=== PATIENT | female | born 1990 | race Caucasian/White ===

== ENCOUNTER 2017-12-19 09:49 | Inpatient (IN) ==
[~2017-12-19 09:49] MED LIST: LIDOCAINE W/ SODIUM BICARB 0.5 ML SYR ONE; LIDOCAINE W/ SODIUM BICARB 0.5 ML SYR SUBD ONE; Lactated Ringers 1,000 ML PRIMARY IV ONE; Nasal Sanitizer POPSWAB ampule 3 AMP (Nozin) PREOP DOSE ENOS SCH; ceFAZolin Inj 2gm (Premix) 2 GM/50 ML BAG IV ONE
[2017-12-19 10:13] LABS: BILIRUBIN,URINE NEGATIVE (NEG); CLARITY,URINE CLEAR (CLEAR); COLOR,URINE YELLOW (Y); GLUCOSE, URINE (UA) NEGATIVE (NEG); OCCULT BLOOD,URINE MODERATE (NEG); PROTEIN,URINE NEGATIVE (NEG); UROBILINOGEN,URINE 0.2 EU/dL (0.2)
[2017-12-19 10:23] LABS: BACTERIA,URINE FEW; SQUAMOUS EPITHELIAL CELL,UR MODERATE; URINE SAMPLE TYPE CLEAN CATCH URINE; WBC,URINE 0-1
[2017-12-19 10:23] LABS: URINE SPECIFIC GRAVITY - MAN 1.015
[2017-12-19] MEDS ORDERED: MIDAZOLAM 5 MG/1 ML ONE (11:09)
[2017-12-19] MEDS ORDERED: PROPOFOL 10 MG/1 ML (200 MG/20 ML) VIAL IV ONE ×2 (11:09→12:53)
[2017-12-19] MEDS ORDERED: fentaNYL Inj 250 MCG/5 ML VIAL ONE (11:09)
[2017-12-19] MEDS ORDERED: REMIFENTANIL HCL 5 MG VIAL IV ONE (11:09)
[2017-12-19] MEDS ORDERED: LIDOCAINE MPF 2% - 5 ML (20 MG/1 ML) ONE (11:09)
[2017-12-19] MEDS ORDERED: Sodium Chloride 0.9% vial 20 ML ONE (11:23)
[2017-12-19] MEDS ORDERED: BACITRACIN 50,000 UNIT VIAL IRRIG ONE (11:23)
[2017-12-19] MEDS ORDERED: PHENYLEPHRINE 1% 30 ML NASAL DROPS ONE (11:56)
[2017-12-19] MEDS ORDERED: BUPIVACAINE 0.25% W/ EPI - 10 ML VIAL ONE (12:28)
[2017-12-19] MEDS ORDERED: ePHEDrine Inj 50 MG/ML AMP ONE (13:24)
[2017-12-19] MEDS ORDERED: ONDANSETRON 4 MG/2 ML VIAL ONE (14:21)
[2017-12-19] MEDS ORDERED: Propofol 1,000 MG/100 ML VIAL IV ONE (14:39)
[2017-12-19] MEDS ORDERED: Lactated Ringers 1,000 ML PRIMARY IV ONE (14:48)
[2017-12-19] MEDS ORDERED: HYDROmorphone 2 MG/1 ML ONE ×2 (14:49→16:01)
[2017-12-19] MEDS ORDERED: MAGNESIUM 400 MG/5 ML - 30 ML (MILK OF MAGNESIA) PO PRN ×3 (15:22→16:24)
[2017-12-19] MEDS ORDERED: oxyCODONE/APAP 10/325 Tab 1 EACH TAB PO PRN (15:22)
[2017-12-19] MEDS ORDERED: MORPHINE SULFATE 2 MG/1 ML IVP PRN (15:22)
[2017-12-19] MEDS ORDERED: MAGNESIUM CITRATE 296 ML SOLUTION PO PRN ×3 (15:22→16:24)
[2017-12-19] MEDS ORDERED: DOCUSATE 100 MG CAPSULE PO PRN ×3 (15:22→16:24)
[2017-12-19] MEDS ORDERED: Fleet Enema 133ml RECTAL PRN ×3 (15:22→16:24)
[2017-12-19] MEDS ORDERED: BISACODYL 5 MG TABLET PO PRN ×3 (15:22→16:24)
[2017-12-19] MEDS ORDERED: Vancomycin-PHA to Dose IV SCH (15:30)
[2017-12-19] MEDS ORDERED: HYDROmorphone 2 MG/1 ML IVP PRN (15:42)
[2017-12-19] MEDS ORDERED: LIDOCAINE W/ SODIUM BICARB 0.5 ML SYR SUBD PRN (15:42)
[2017-12-19] MEDS ORDERED: KETOROLAC 15 MG/1 ML VIAL IVP PRN (15:42)
[2017-12-19] MEDS ORDERED: ONDANSETRON 4 MG/2 ML VIAL IVP PRN (15:42)
[2017-12-19] MEDS ORDERED: KETOROLAC 30 MG/1 ML VIAL ONE (15:44)
[2017-12-19] MEDS ORDERED: fentaNYL Inj 100 MCG/2 ML VIAL ONE (15:45)
[2017-12-19] MEDS: fentaNYL Inj 100 MCG/2 ML VIAL IVP PRN ×2 (15:45→15:57)
[2017-12-19] MEDS ORDERED: Lactated Ringers 1,000 ML PRIMARY IV SCH (15:45)
--- NOTE | 2017-12-19 15:50 | GEN.OPNOTE ---
Operative Note Surgery Date: 12/19/17 Preoperative Diagnosis: Left L4 radiculopathy/Left L4-5 far lateral disc herniation Postoperative Diagnosis: Same Procedure: Left L4-5 Microlumbar discectomy Surgeon: Sanju Riley MD Anesthesia Provider: Wojciech Youssef CRNA Estimated Blood Loss (mL): 75 Fluids: See anesthesia operative record Pathology: None. Indications: See pre-operative diagnosis Findings: Disrupted nucleus propulsis. Complications: None Operative Summary: Ms. Chapman was met in the preoperative area. Her surgical history and physical was updated. The procedure to be performed was confirmed with Miss Chapman in this match what was written on the patient's consent form. Any questions that Ms. Chapman or her had were answered before she was taken back to the operating room suite. Ms. Chapman was brought back to the operating room suite. She was put under general anesthesia and intubated by the anesthesia staff. She had a Rose catheter placed in her bladder for the procedure. She had pneumatic compression hose placed on her lower legs bilaterally. She was carefully rolled over onto the Evan surgical table with her arms gently positioned upwards with her shoulders abducted less than 90. Her arms were what were well -padded with foam padding on top of the padding of the surgical armboards. The region of her chest and axilla was checked be free with no pressure points over the region of the brachial plexus bilaterally. Her breasts were checked to be below the chest pad of the Evan table with no pressure points over the nipples. Her Rose catheter was checked be free from kinks. Her her pneumatic compression hose was attached to a pneumatic compression device. The C-arm fluoroscopy unit was used to help localize the skin incision for the approach to the intended surgical level. A midline skin incision was marked with a skin marker with a crosshatch based on the localization with the C-arm. Another skin incision was marked vertically approximately 3 inches lateral to the midline incision. A crosshatch was made across this incision with a skin marker. Miss Chapman was prepped and draped in the usual and standard fashion. She was given 2 g of Ancef and 1 g of vancomycin IV for perioperative antibiosis. She was given 10 mg of Decadron IV. A standard surgical timeout was performed identifying the correct patient, the patient's symptoms, the correct procedure, and the correct equipment being available for the procedure. The intended midline skin incision was injected with local anesthetic, quarter percent Marcaine with 1 in 200,000 epinephrine. 7 mL local anesthetic was used. The skin incision was incised with a 10 blade scalpel and all dermal and superficial bleeding points were coagulated with bipolar cautery. Dissection was continued taken down to the lumbar fascia. The lumbar fascia was incised along the border of the spinous processes on the left. Dissection was taken down the spinous process and out over the lamina in a subperiosteal fashion. When the inferior aspect of the lamina became identified a [place] 4 was placed underneath the lamina and lateral fluoroscopy demonstrated the [place] 4 to be underneath the L4 lamina at the intended L4-5 surgical site. Continued dissection was performed until the majority of the L4 lamina on the left very superior aspect of the L5 lamina and the medial aspect of the L4-5 facet joint was exposed. A Wilber retractor was placed for self-retaining retraction. The operating microscope was brought into the surgical field and used for the microsurgical techniques used for the microlumbar discectomy. The high-speed Bilbus Jose A drill with a 3 mm matchstick bur was used to perform a hemilaminotomy and medial facetectomy. An upangled angled curette was used to dissect the insertion of the yellow ligament ligament from underneath the remaining aspect of the L4 lamina. The plane between the yellow ligament and the dermis established and the yellow ligament was completely removed in the hemilaminotomy and medial facetectomy site. This exposed the lateral half of the thecal sac as well as the takeoff of the transversing L5 nerve root. New A [place] 4 instrument was used to carefully dissect the soft tissue adjacent to the takeoffs the L5 nerve root identifying the L4-5 disc space. The thecal sac and the takeoff the L5 nerve root were gently retracted with a Linda'Minerva nerve root retractor and epidural veins over the disc space were coagulated with bipolar cautery turned down to a low setting and cut with microscissors. An annulotomy was performed with a 15 blade scalpel and disc materials were removed with a pituitary rongeur. Additional disc was loosened in the disc space using down-biting medium Mont[place]errat curette with additional disc material being removed with pituitary rongeur. An extensive lateral discectomy was then performed using the down-biting medium [place]at curette to dissect the disc and the cartilaginous endplate from the very left lateral aspect of the disc space. Disc material fragments removed from this region with a pituitary pituitary rongeur. This was performed a number of times to make sure that the disc material and the lateral aspect of the disc space was completely removed. Additional dissection was performed in the left lateral aspect of the disc space using the Bee instrument as well as with a ball-tip instrument. These instruments also palpated the very lateral aspect of the endplate of the L4 vertebral body and very lateral aspect of the endplate of the L5 vertebral body. The disc material mL left far lateral aspect of the L4-5 disc space was completely removed down to near the anterior annulus. Although the disc herniation could not be visualized with this approach it was felt that the far lateral herniated disc was removed. It was therefore decided not to proceed with the lateral approach in addition to the midline approach. The surgical site was copiously irrigated with bacitracin irrigation. The surgical site was inspected for bleeding points none were identified. This FloSeal hemostatic agent was placed over the exposed dural elements. The closure portion of the procedure was begun. The fascia was closed with #1 Vicryl suture in an interrupted fashion. Surgical site was then irrigated again with bacitracin irrigation. The deep subcutaneous tissue and fascia was reapproximated with 2-0 Vicryl suture in an interrupted fashion. This the surgical site was again irrigated with bacitracin irrigation. The dermis and superficial subcutaneous tissue was reapproximated with 3-0 Vicryl suture in an inverted interrupted fashion. The final layer of closure was performed with 4-0 Monocryl in a running subcuticular fashion. The [place] drape was pulled back the skin edges. The skin edges were cleansed with bacitracin soaked sponge and dried with a sterile dry sponge. The incision was dressed with a Mepilex dressing. All surgical drapes removed from Ms. Ralph Was carefully rolled over onto the PACU stretcher. She was awoken and extubated by the anesthesia staff. She was taken to the recovery room in stable condition. All surgical counts reported as correct scub and circulating personnel. End of dictation. The
[2017-12-19] MEDS ORDERED: KETOROLAC 30 MG/1 ML VIAL IVP PRN (16:00)
[2017-12-19] MEDS ORDERED: HYDROcodone-APAP 10 MG-325 MG TABLET PO PRN (16:24)
[2017-12-19] MEDS ORDERED: HYDROcodone-APAP 7.5 MG-325 MG TABLET PO PRN (16:24)
[2017-12-19] MEDS ORDERED: HYDROcodone-APAP 5 MG -325 MG TABLET PO PRN (16:24)
[2017-12-19] MEDS: oxyCODONE/APAP 10/325 Tab 1 EACH TAB PO PRN ×2 (16:54→20:57)
[2017-12-19] MEDS: MORPHINE SULFATE 2 MG/1 ML IVP PRN ×2 (18:18→21:57)
[2017-12-19] MEDS ORDERED: DIAZEPAM 10 MG/2 ML (5 MG/1 ML) CARPUJECT IVP ONE (18:22)
[2017-12-19] MEDS ORDERED: DIAZEPAM 10 MG TABLET PO PRN (18:23)
--- NOTE | 2017-12-19 18:39 | NEURO.PROG ---
Subjective Post Op Day: 0 Pain Management: IV Rose Catheter: No Diet: Regular Ambulating: No Additional Details: Awake, alert. Complaint of post-operative pain, 6/10 despite increasing PO pain meds to Percocet 10/325 (given approximately 90 minutes ago). Left leg pain improved. Moving all extremities well. Weak left dorsiflexion/plantarflexion - 4/5 (same as pre-op). PLAN: 1.) About to receive Morphine 2mg IV for breakthrough pain. 2.) Will order one time dose Valium 5 mg IV. 3.) Valium 5 mg PO Q6H prn. Objective : Data - Vital Signs Vital Signs and I&O: Vital Signs - Last Taken Temperature 98.5 F 12/19/17 18:00 Pulse Rate 100 12/19/17 18:00 Respiratory Rate 16 12/19/17 18:00 Blood Pressure 106/73 12/19/17 18:00 Pulse Ox 97 12/19/17 18:00 Intake and Output (24hr x 4 totals) 12/17/17 12/18/17 12/19/17 12/20/17 05:59 05:59 05:59 05:59 Intake Total 1700 / 1700 Output Total 1750 / 1750 Balance -50 / -50
--- NOTE | 2017-12-19 18:48 | CRNA.PROGR ---
Anesthesia Time - Procedure/Recovery Time Start Date: 12/19/17 End Date: 12/19/17 Anesthesia : Time In: 11:46 Anesthesia : Time Out: 15:27 Anesthesia : Total Time: 221 - Total Anesthesia Time Total Anesthesia Time (minutes): 221 - Other Weight: 89.358 kg Height: 6 ft 1 in Body Mass Index (BMI): 25.9 Anesthesia Type: General Anesthesia : ET
--- NOTE | 2017-12-19 18:49 | CRNA.PROGR ---
Anesthesia Recovery Phase I - Post Anesthesia Evaluation Patient's Condition on Arrival in Phase I: Stable Pain Level: 6
[2017-12-19] MEDS ORDERED: ceFAZolin Inj 1 GM in Sodium Chloride 0.9% 100 ML IV SCH (20:00)
[2017-12-19] MEDS: ceFAZolin Inj 1 GM in Sodium Chloride 0.9% 100 ML IV SCH (20:04)
[2017-12-20] MEDS: oxyCODONE/APAP 10/325 Tab 1 EACH TAB PO PRN ×5 (01:12→23:30)
[2017-12-20] MEDS: MORPHINE SULFATE 2 MG/1 ML IVP PRN ×2 (01:28→05:37)
[2017-12-20] MEDS: ceFAZolin Inj 1 GM in Sodium Chloride 0.9% 100 ML IV SCH (04:50)
[2017-12-20 05:36] LABS: BASOPHILS # (AUTO) 0.01 10*3/UL; BASOPHILS % (AUTO) 0.1 % (0-1); EOSINOPHILS # (AUTO) 0.01 10*3/UL; EOSINOPHILS % (AUTO) 0.1 % (0-8); Hematocrit [HCT] 34.8 % (37.0-47.0); Hemoglobin [HGB] 11.5 g/dL (12.0-16.0); LYMPHOCYTES # (AUTO) 1.28 10*3/uL; MEAN CORPUSCULAR HEMOGLOBIN 27.3 PG (27-31); MEAN CORPUSCULAR VOLUME 82.5 FL (81-99); MEAN PLATELET VOLUME 9.7 FL (7.4-12.2); MONOCYTES # (AUTO) 1.03 10*3/UL (0.3-0.8); MONOCYTES % (AUTO) 6.8 % (5-15); NEUTROPHILS # (AUTO) 12.79 10*3/UL; NEUTROPHILS % (AUTO) 84.3 % (50-80); RED BLOOD COUNT 4.22 10^6/uL (4.20-5.40)
[2017-12-20 05:47] LABS: BLOOD UREA NITROGEN 13 mg/dL (7-22)
[2017-12-20 06:14] LABS: PLATELET MORPHOLOGY COMMENT NORMAL MORPHOLOGY (NORM); RBC MORPHOLOGY COMMENT NORMAL MORPHOLOGY (NORM); WBC MORPHOLOGY COMMENT NORMAL MORPHOLOGY (NORM)
[2017-12-20] MEDS ORDERED: HYDROmorphone Tab 4 MG TAB PO PRN (07:04)
[2017-12-20] MEDS ORDERED: DEXAMETHASONE PF 10 MG/1 ML VIAL IVP ONE (07:07)
[2017-12-20] MEDS ORDERED: Dexamethasone Tab 4 MG TABLET PO SCH (07:15)
--- NOTE | 2017-12-20 07:20 | NEURO.PROG ---
Subjective Post Op Day: 1 Pain Management: IV Rose Catheter: No Diet: Regular Ambulating: Yes Additional Details: Awake and alert. Moving all extremities. Full dorsiflexion/plantarflexion right leg. Weak dorsiflexion/plantarflexion left leg, 4/5 (same as pre-op). Pain still not well controlled; too much pain for discharge. States leg difficult to control; similar but somewhat worse then when disc herniated. PLAN: 1.) Continue post-operative antibiotics. 2.) Dilaudid 4 mg PO Q4H prn - pain. 3.) Increase Percocet to 20 mg Q4H prn, in case Dilaudid not effective. 4.) Toradol 30 mg IV x 1 dose. 5.) Toradol 15 mg PO Q8H. 6.) Increase Valium to 10 mg Q6H. 7.) Continuous pulse ox monitoring. 8.) Mobilize with PT. Objective : Data - Labs CBC and BMP: 12/20/17 05:06 12/20/17 05:06 - Vital Signs Vital Signs and I&O: Vital Signs - Last Taken Temperature 97.3 F 12/20/17 05:00 Pulse Rate 85 12/20/17 07:00 Respiratory Rate 20 12/20/17 07:00 Blood Pressure 98/64 12/20/17 06:06 Pulse Ox 94 12/20/17 05:00 Intake and Output (24hr x 4 totals) 12/18/17 12/19/17 12/20/17 12/21/17 05:59 05:59 05:59 05:59 Intake Total 3302 / 3302 Output Total 2350 / 2350 Balance 952 / 952
[2017-12-20] MEDS ORDERED: KETOROLAC 30 MG/1 ML VIAL IVP ONE (07:21)
[2017-12-20] MEDS: HYDROmorphone Tab 4 MG TAB PO PRN ×4 (07:46→21:02)
--- NOTE | 2017-12-20 09:06 | CRNA.PROGR ---
Anesthesia Note - Progress Notes Anesthesia Progress Note: Sitting up in bed eating breakfast with her spouse. Discussed her anesthetic course and she has no questions regarding her anesthetic. VSS, AAO, still having some pain. No anesthetic complications noted. Laboratory Results 12/19/17 12/19/17 12/20/17 Range/Units 10:00 10:09 05:06 WBC 15.16 H (4.8-10.8) 10^3/uL RBC 4.22 (4.20-5.40) 10^6/uL Hgb 11.5 L (12.0-16.0) g/dL Hct 34.8 L (37.0-47.0) % MCV 82.5 (81-99) FL MCH 27.3 (27-31) PG MCHC 33.0 (33-37) g/dL RDW Std Deviation 45.6 (39-50) fL RDW Coeff of Timothy 15.2 H (11.5-14.5) % Plt Count 288 (140-350) 10*3/uL MPV 9.7 (7.4-12.2) FL Immature Gran % (Auto) 0.3 (0-5) % Neut % (Auto) 84.3 H (50-80) % Lymph % (Auto) 8.4 L (10-50) % [place] % (Auto) 6.8 (5-15) % Eos % (Auto) 0.1 (0-8) % Baso % (Auto) 0.1 (0-1) % Immature Gran # (Auto) 0.04 10*3/UL Neut # (Auto) 12.79 10*3/UL Lymph # (Auto) 1.28 10*3/uL [place] # (Auto) 1.03 H (0.3-0.8) 10*3/UL Eos # (Auto) 0.01 10*3/UL Baso # (Auto) 0.01 10*3/UL WBC Morphology Comment Normal morphology (NORM) Plt Morphology Comment Normal morphology (NORM) RBC Morph Comment Normal morphology (NORM) Sodium (135-145) meq/L Potassium (3.8-5.2) meq/L Chloride (98-112) meq/L Carbon Dioxide (23-33) meq/L Anion Gap (5-20) BUN (7-22) mg/dL Creatinine (0.50-1.20) mg/dL Estimated GFR (>60 ml/min/1.73m(2)) BUN/Creatinine Ratio (6-20) Glucose (78-110) mg/dL Calculated Osmolality (267-292) mOsm/kg Calcium (8.7-10.7) mg/dL Ur Collection Type Clean catch urine Urine Color Yellow (Y) Urine Clarity Clear (CLEAR) Urine pH 7.0 (5.0-8.5) Ur Specific [place] 1.015 (1.005-1.030) U Specif Grav (Refrac) 1.015 Urine Protein Negative (NEG) mg/dl Urine Glucose (UA) Negative (NEG) mg/dL Urine Ketones Negative (NEG) Urine Occult Blood Moderate H (NEG) Urine Nitrate Negative (NEG) Urine Bilirubin Negative (NEG) Urine Urobilinogen 0.2 (0.2) EU/dL Ur Leukocyte Esterase Negative (NEG) Urine RBC 1-3 (NONE) /hpf Urine WBC 0-1 (NONE) Ur Squamous Epith Cells Moderate (NONE) Ur Renal Epithelial Cell None (NONE) Urine Crystals None Urine Bacteria Few (NONE) Urine Casts None (NONE) Urine Mucus Rare (NONE) Urine Trichomonas None (NONE) Urine Yeast None (NONE) Urine HCG, Qual Negative 12/20/17 Range/Units 05:06 WBC (4.8-10.8) 10^3/uL RBC (4.20-5.40) 10^6/uL Hgb (12.0-16.0) g/dL Hct (37.0-47.0) % MCV (81-99) FL MCH (27-31) PG MCHC (33-37) g/dL RDW Std Deviation (39-50) fL RDW Coeff of Timothy (11.5-14.5) % Plt Count (140-350) 10*3/uL MPV (7.4-12.2) FL Immature Gran % (Auto) (0-5) % Neut % (Auto) (50-80) % Lymph % (Auto) (10-50) % [place] % (Auto) (5-15) % Eos % (Auto) (0-8) % Baso % (Auto) (0-1) % Immature Gran # (Auto) 10*3/UL Neut # (Auto) 10*3/UL Lymph # (Auto) 10*3/uL [place] # (Auto) (0.3-0.8) 10*3/UL Eos # (Auto) 10*3/UL Baso # (Auto) 10*3/UL WBC Morphology Comment (NORM) Plt Morphology Comment (NORM) RBC Morph Comment (NORM) Sodium 136 (135-145) meq/L Potassium 4.5 (3.8-5.2) meq/L Chloride 112 (98-112) meq/L Carbon Dioxide 17 L (23-33) meq/L Anion Gap 7 (5-20) BUN 13 (7-22) mg/dL Creatinine 0.5 (0.50-1.20) mg/dL Estimated GFR > 60 (>60 ml/min/1.73m(2)) BUN/Creatinine Ratio 26.00 H (6-20) Glucose 134 H (78-110) mg/dL Calculated Osmolality 283.0 (267-292) mOsm/kg Calcium 8.4 L (8.7-10.7) mg/dL Ur Collection Type Urine Color (Y) Urine Clarity (CLEAR) Urine pH (5.0-8.5) Ur Specific [place] (1.005-1.030) U Specif Grav (Refrac) Urine Protein (NEG) mg/dl Urine Glucose (UA) (NEG) mg/dL Urine Ketones (NEG) Urine Occult Blood (NEG) Urine Nitrate (NEG) Urine Bilirubin (NEG) Urine Urobilinogen (0.2) EU/dL Ur Leukocyte Esterase (NEG) Urine RBC (NONE) /hpf Urine WBC (NONE) Ur Squamous Epith Cells (NONE) Ur Renal Epithelial Cell (NONE) Urine Crystals Urine Bacteria (NONE) Urine Casts (NONE) Urine Mucus (NONE) Urine Trichomonas (NONE) Urine Yeast (NONE) Urine HCG, Qual Vital Signs (24 hrs) Temp Pulse Pulse Resp BP BP Pulse Ox 12/20/17 08:23 97.8 F 73 20 112/65 95 12/20/17 07:00 85 20 12/20/17 06:06 98/64 12/20/17 05:00 97.3 F 85 20 95/43 94 12/20/17 01:00 98.1 F 87 18 102/57 95 12/19/17 21:00 97.1 F 95 18 106/73 96 12/19/17 18:00 98.5 F 100 16 106/73 97 12/19/17 17:00 97.9 F 88 12 105/69 96 12/19/17 16:30 97.4 F 86 12 102/70 94 12/19/17 16:29 97.4 F 86 12 102/70 94 12/19/17 16:15 98.7 F 78 18 103/62 99 12/19/17 16:05 79 18 111/61 99 12/19/17 15:55 76 18 109/59 99 12/19/17 15:45 87 18 112/68 99 12/19/17 15:40 97 18 113/60 99 12/19/17 15:35 97 14 110/67 99 12/19/17 15:30 103 H 14 97/76 99 12/19/17 15:25 97.2 F 85 14 112/63 99 12/19/17 11:11 99.2 F 75 14 104/78 98
[2017-12-20] MEDS: buPROPion XL Tab 150 MG TAB PO SCH (09:34)
[2017-12-20] MEDS: KETOROLAC 10 MG TABLET PO SCH ×2 (13:41→19:16)
[2017-12-21] MEDS: KETOROLAC 10 MG TABLET PO SCH ×2 (01:30→07:14)
[2017-12-21] MEDS: HYDROmorphone Tab 4 MG TAB PO PRN ×3 (01:30→09:19)
[2017-12-21] MEDS: oxyCODONE/APAP 10/325 Tab 1 EACH TAB PO PRN (04:03)
[2017-12-21 04:08] VITALS: RESP 18
--- NOTE | 2017-12-21 07:24 | NEURO.PROG ---
Subjective Post Op Day: 2 Pain Management: PO Rose Catheter: No Flatus: Yes Diet: Regular Ambulating: Yes Additional Details: Awake, alert and up in room with walker. Moving all extremities. Full dorsi/plantar flexion - right. Weak dorsi/plantar flexion - left, with continued decreased control - same as preop. Pain controlled and wanting to go home. She was reminded that she will need to decrease amount of pain med needed to accomplish this. She would like to use Dilaudid at home, which I will write for, in addition to 4 more days of Toradol and resume her pre op Flexeril. Needs bowel movement, which the nurses will help accomplish prior to discharge. Plan: OK for home from neuro standpoint. Ambulate with walker. Limit bending, twisting and lifting with reminder provided with binder. Incision care daily following shower with helene wipes and mepilex x 7 days. No tub baths until after post op appointment. Follow up with Dr. Riley in 2 weeks. Objective : Data - Labs CBC and BMP: 12/20/17 05:06 12/20/17 05:06 - Vital Signs Vital Signs and I&O: Vital Signs - Last Taken Temperature 96.8 F 12/21/17 04:07 Pulse Rate 82 12/21/17 04:07 Respiratory Rate 18 12/21/17 04:07 Blood Pressure 106/58 12/21/17 04:07 Pulse Ox 97 12/21/17 04:07 Intake and Output (24hr x 4 totals) 12/19/17 12/20/17 12/21/17 12/22/17 05:59 05:59 05:59 05:59 Intake Total 3302 / 3302 2360 / 2360 Output Total 2350 / 2350 650 / 650 Balance 952 / 952 1710 / 1710
[2017-12-21 07:42] VITALS: BP 114/81; TEMP 97.3; O2SAT 94
[2017-12-21] MEDS: buPROPion XL Tab 150 MG TAB PO SCH (08:18)
--- NOTE | 2017-12-21 11:48 | PT.PROG ---
Progress Note Progress Note: Attempted to see patient however she was very exhausted and finally sleeping. Will attempt again tomorrow. Anni Armando, STONE SPREADER OPERATOR
--- NOTE | 2017-12-21 11:51 | PT.PROG ---
Progress Note Progress Note: S: Pt. states she is doing well. Ready to go home. Has some concerns of her left leg movements and ability, but encouraged her that this should improve over time. O: Treatment consisted of functional activities: ambulated in the hallway on even surfaces, up and down 4 stairs, and sit to stands x 1. She was given a standard walker and instructed in use. A: Pt. performed all activities very well. she does have rigidity and instability noted in left LE. She was able to use the walker well with no concerns. P: Continue per POC to increase strength and activity tolerance unless otherwise d/c from hospital. Anni Armando, STEAM FITTER
--- NOTE | 2017-12-22 09:52 | PTI REPORT ---
Thank you for the referral of Cheyenne Chapman. She was seen on 12/19/17 for an inpatient evaluation status post lumbar laminectomy. SUBJECTIVE: The patient is a 27-year-old female. The patient reports that she lives at home with her . Her is gone from 11-2 PM everyday. The patient reports that she had a lot of left lower extremity numbness prior to surgery. The patient reports that she has a 6-year-old and a 3-year-old child. The patient was wondering how to get in and out of her vehicle. The patient reports that her pain is a 7/10 on the verbal analog scale (0=no pain, 10=worst pain). The patient has a few stairs to get into her home and stairs throughout the home. PAST MEDICAL HISTORY: Past medical history can be found in the patient's medical record. OBJECTIVE FINDINGS: General observations: The patient was supine in bed with head of bed elevated over 30 degrees with IV in place. Bed mobility: The patient was educated on log rolling and required mod assist x1 for proper technique and max cues for supine to sit and sit to supine. Sensation: The patient does demonstrate decreased sensation in left L4-L5 dermatome. ASSESSMENT: The patient is a 27-year-old female that presents status post lumbar laminectomy. The patient would benefit from skilled therapy in order to improve functional mobility and return to prior level of function. The patient' s prognosis for therapy is good. Problem List: Decreased strength Decreased independence Short-Term Goals: To be met by discharge from inpatient: Patient will be independent with brace donning and doffing. Patient will be independent with log rolling technique. Patient will be able to ambulate 150 feet in order to return home to prior level of function. Patient will be able to ascend and descend 5 stairs in order to return home per prior level of function. Long-Term Goals: To be met following discharge from inpatient: Patient will benefit to be seen by outpatient physical therapy. TREATMENT PLAN: Patient will be seen B.I.D during the week and one time per day over the weekend as an inpatient for therapeutic exercise, functional activity, neuromuscular reeducation, gait training, and modalities as needed. INITIAL TREATMENT: Treatment today consisted of the initial evaluation followed by instruction in log rolling and B/L/Ts. The patient was fit with an abdominal binder and educated on her bending/lifting/twisting restrictions. The patient was left in care of nurse when PT exited. RODDY
--- NOTE | 2017-12-22 10:19 | OTI REPORT ---
Thank you for the referral of Cheyenne Chapman. She was seen on 12/19/17 for an occupational therapy inpatient evaluation status post lumbar laminectomy. SUBJECTIVE: The patient is a 27-year-old female who had numbness in her leg and fell a couple of times before having her back surgery. She reports that her biggest fear is having her kids at home, who are very young, running around her legs. She is not to bend, twist, or lift for the next 6 weeks and is interested in all of the equipment that will help her. PAST MEDICAL HISTORY: Past medical history can be found in the patient's medical record. OBJECTIVE FINDINGS: Activities of daily living: The patient was issued a sock aide, a shoe horn, and a bath sponge to be independent in all of her ADLs and functional activities. Demonstration was given on how to use the machine cementer as well as the sock aide. Her was present during the session today as well. They have a very low toilet and she is very concerned about standing up from that and causing pressure. She was issued a high rise toilet seat with handles. The patient was also issued a shower chair with a back to sit during showers for safety. Demonstration was given on how to get in and out of the shower. She required max assist to perform ADLs. Range of motion: Upper extremity range of motion is within normal limits. Pain: The patient's pain level was an 8/10 on the verbal analog scale (0=no pain , 10=worst pain). ASSESSMENT: The patient would benefit from all of the adaptive equipment that was issued to promote independence and to be able to be safe with her back precautions once she returns home. She is to use the machine cementer and sock aide to dress self, the bath sponge during showers, the shower chair and the high rise toilet seat for safer transfers, and the long handled shoe horn to not bend over when donning shoes. Short-Term Goals: To be met by discharge from inpatient: Patient will be able to use adaptive equipment independently. Patient will be able to complete all functional transfers independently and safely. Long-Term Goals: To be met following discharge from inpatient: Patient will return home, demonstrating independence and safety with all ADLs and functional activities. TREATMENT PLAN: Patient will be seen B.I.D during the week and one time per day over the weekend as an inpatient to address the above goals and objectives. INITIAL TREATMENT: Treatment today consisted of the initial evaluation followed by the patient completing functional activities with the adaptive devices. The patient was educated on transfers and adaptive devices. RODDY
--- NOTE | 2017-12-22 12:07 | NEURO.DC ---
Discharge Summary Admit Date: 12/19/17 Discharge Date: 12/21/17 Hospital Course: Hospital course This 27 year old female with an acute Left L4 radiculopathy/Left L4-5 far lateral disc herniation and sciatica like symptoms was admitted to the hospital to undergo Left L4-L5 Micro Lumbar Discectomy with Dr. Riley. The surgery was uncomplicated and the patient was admitted to 3rd floor in stable condition. Postoperatively, the patient did well with physical therapy, getting into and out of bed. She did require an additional night stay for pain management. She discharged to home on the morning of her second post operative day with activity and wound care instructions. She will be seen in followup with Dr. Riley in 2 weeks. Current Medication(s) 3 Medication Instructions Recorded Confirmed Type bupropion HCl XL 300 mg 24 hr 300 mg PO QAM 12/12/17 12/19/17 History tablet, extended release Topiramate 25 mg PO DAILY 12/19/17 12/19/17 History In addition to the above medications, she went home on hydromorphone 4 mg PO Q6H prn pain and Flexeril 10 mg PO TID prn muscle spasms. Exam - Vitals Vital Signs: Vital Signs Temperature 97.3 F Temperature Source Temporal Artery Scan Pulse Rate [Pulse Oximeter] 87 Pulse Rate 78 Respiratory Rate 18 Blood Pressure [Left Arm] 114/81 Blood Pressure 103/62 Pulse Ox 94 Oxygen Flow Rate room air Oxygen Delivery Method Room Air Height 6 ft 1 in Weight 88.269 kg - General General Appearance: No Acute Distress, Cooperative
== END 2017-12-21 09:25 | disposition home or self-care (01) | DRG 520 ==
LOC: OPS 09:49 → MED/SURG 16:22
PROVIDERS: ADMIT Neurological Surgery; ATTEND Neurological Surgery

== ENCOUNTER 2018-01-01 12:55 | Inpatient (IN) ==
[~2018-01-01 12:55] MED LIST changes: -LIDOCAINE W/ SODIUM BICARB 0.5 ML SYR ONE; -LIDOCAINE W/ SODIUM BICARB 0.5 ML SYR SUBD ONE; -Lactated Ringers 1,000 ML PRIMARY IV ONE; -Nasal Sanitizer POPSWAB ampule 3 AMP (Nozin) PREOP DOSE ENOS SCH; +Vancomycin Inj 1gm vial ONE; -ceFAZolin Inj 2gm (Premix) 2 GM/50 ML BAG IV ONE
[2018-01-01] MEDS ORDERED: Lactated Ringers 1,000 ML PRIMARY IV ONE (13:15)
[2018-01-01] MEDS ORDERED: ceFAZolin Inj 2gm (Premix) 2 GM/50 ML BAG IV ONE (13:15)
[2018-01-01] MEDS ORDERED: PROPOFOL 10 MG/1 ML (200 MG/20 ML) VIAL IV ONE ×4 (13:19→18:59)
[2018-01-01] MEDS ORDERED: Propofol 1,000 MG/100 ML VIAL IV ONE ×2 (13:19→17:08)
[2018-01-01] MEDS ORDERED: REMIFENTANIL 1 MG/1 ML IV ONE ×4 (13:22→18:43)
[2018-01-01] MEDS ORDERED: Sodium Chloride 0.9% 250 ML ONE (13:23)
[2018-01-01] MEDS ORDERED: MIDAZOLAM 5 MG/1 ML ONE (13:28)
[2018-01-01] MEDS ORDERED: LIDOCAINE MPF 2% - 5 ML (20 MG/1 ML) ONE (13:28)
[2018-01-01] MEDS ORDERED: fentaNYL Inj 250 MCG/5 ML VIAL ONE (13:28)
[2018-01-01] MEDS ORDERED: METHYLPREDNISOLONE ACETATE 40 MG/ML IM ONE (13:30)
[2018-01-01] MEDS ORDERED: Sodium Chloride 0.9% vial 10 ML ONE (13:31)
[2018-01-01] MEDS ORDERED: BACITRACIN 50,000 UNIT VIAL IRRIG ONE ×2 (13:31→18:57)
[2018-01-01] MEDS ORDERED: ONDANSETRON 4 MG/2 ML VIAL ONE (14:05)
[2018-01-01] MEDS ORDERED: DEXAMETHASONE PF 10 MG/1 ML VIAL ONE (14:05)
[2018-01-01] MEDS ORDERED: Acetaminophen 1000mg Inj 1,000 MG/100 ML VIAL IV ONE ×2 (14:05→20:36)
[2018-01-01] MEDS ORDERED: BUPIVACAINE 0.25% W/ EPI - 10 ML VIAL ONE (14:53)
[2018-01-01] MEDS ORDERED: KETAMINE 100 MG/1 ML - 5 ML ONE (15:27)
[2018-01-01] MEDS ORDERED: HYDROmorphone 2 MG/1 ML ONE ×5 (15:37→20:51)
[2018-01-01] MEDS ORDERED: Sodium Chloride 0.9% vial 20 ML ONE (16:40)
[2018-01-01] MEDS ORDERED: BUPivacaine Liposome/PF (Exparel) Inj 20ml vial INFIL ONE (16:40)
[2018-01-01] MEDS ORDERED: ceFAZolin 1 GM VIAL ONE (18:37)
[2018-01-01] MEDS ORDERED: BETAMET ACET/BETAMET NA PH 6 MG/1 ML - 5 ML ONE (18:49)
[2018-01-01] MEDS ORDERED: ONDANSETRON 4 MG/2 ML VIAL IVP PRN (20:13)
[2018-01-01] MEDS ORDERED: LIDOCAINE W/ SODIUM BICARB 0.5 ML SYR SUBD PRN (20:13)
[2018-01-01] MEDS ORDERED: Prochlorperazine Edisylate Inj 10mg/2ml vial IVP PRN ×2 (20:13→20:39)
[2018-01-01] MEDS ORDERED: Lactated Ringers 1,000 ML PRIMARY IV SCH (20:15)
--- NOTE | 2018-01-01 20:15 | CRNA.PROGR ---
Anesthesia Recovery Phase I - Post Anesthesia Evaluation Patient's Condition on Arrival in Phase I: Stable Pain Level: 1
--- NOTE | 2018-01-01 20:16 | CRNA.PROGR ---
Anesthesia Time - Procedure/Recovery Time Start Date: 01/01/18 End Date: 01/01/18 Anesthesia : Time In: 14:10 Anesthesia : Time Out: 20:08 Anesthesia : Total Time: 358 - Total Anesthesia Time Total Anesthesia Time (minutes): 358 - Other Weight: 88.904 kg Height: 6 ft 1 in Body Mass Index (BMI): 25.8 Physical Status: P2 Anesthesia Type: General Anesthesia : ET
[2018-01-01] MEDS: HYDROmorphone 2 MG/1 ML IVP PRN ×3 (20:29→20:50)
--- NOTE | 2018-01-01 20:31 | GEN.OPNOTE ---
Operative Note Surgery Date: 01/01/18 Preoperative Diagnosis: Persistent intractable left leg pain. Persistent left lumbar radiculopathy Postoperative Diagnosis: Same Surgeon: Sanju Riley MD Derrick Worker Well Service: NICOLAS Harkins Anesthesia Provider: Benson Haider CRNA Anesthesia Type: General Estimated Blood Loss (mL): 100 Fluids: See anesthesia record Pathology: None Indications: See pre-operative diagnosis Findings: Small surgical site epidural hematoma Far lateral nerve compression Complications: None Operative Summary: Ms. Chapman was met in the preoperative area. Her surgical history and physical was updated. The procedure to be performed was confirmed with Ms. Chapman and her and this matched what was written on the patient's consent form. Any questions that Ms. Chapman or her had were answered before she was taken back to the operating room suite. Ms. Chapman was brought back to the operating room suite and put under general anesthesia and intubated by the anesthesia staff. She had a Rose catheter placed or bladder for the procedure. She had pneumatic compression hose placed on her lower legs bilaterally. Ms. Chapman was carefully rolled over onto the Evan surgical table with her arms gently positioned upwards with her shoulders abducted less than 90. Her arms were well-padded with foam padding on top of the padding of the surgical arm boards. The region of her chest and axilla was checked to make sure that there were no pressure points over the region of the brachial plexus bilaterally. Her breasts were checked be below the chest pad of the Evan table with no pressure points over the nipples. All bony prominences were well padded. Her Rose catheter was checked be free from kinks. Her pneumatic compression hose was attached and pneumatic compression device. Ms. Chapman's midline lower lumbar incision from her recent surgery was clearly evident. Another parallel incision was marked with a skin marker approximately 4 inches to the left of this incision. Ms. Chapman was prepped and draped in the usual and standard fashion. She was given 2 g of Ancef IV for perioperative antibiosis. She was given 1 gram of vancomycin IV for perioperative antibiosis. She was given 10 mg of Decadron IV. A standard surgical timeout was performed identifying the correct patient, the patient's symptoms, the correct procedure, and the correct equipment being available for the procedure. Ms. Chapman's intended skin incisions were both injected with quarter percent Marcaine with 1 in 200,000 epinephrine. 20 mL of local anesthetic was injected. Her previous midline lumbar incision was opened with a 10 blade scalpel with all dermal and superficial bleeding points being controlled with bipolar cautery. The dissection was then continued deeper to the lumbar fascia. All dermal and superficial subcutaneous and deep subcutaneous sutures were removed from the surgical site with snaps. The fascia was then opened with the Metzenbaum scissors removing the fascial sutures with snaps. The muscle was dissected off the spinous processes and lamina using a Cooper exposing the previous hemilaminotomy/medial facetectomy site at L4-5 on the left. During the dissection there is a small postoperative fluid pocket noted in the subcutaneous tissue above the fascia was which was removed by suction. Upon exposing the canal there was hemostatic agent and a small epidural hematoma displacing the thecal sac and the transversing L5 nerve root somewhat medially. This was completely removed by suction. There may have been some small fragments of displaced disc removed with the suction with the coalesced hemostatic agent. The operating microscope was brought into the surgical field and a redo left L4- 5 microlumbar discectomy was performed. The yellow ligament in the hemilaminotomy and medial facetectomy site that remained more caudally from the previous surgery was completely removed down to the leading edge of the L5 lamina and the leading edge of the lamina L5 lamina was removed with a small Kerrison punches as was the leading edge of the lamina more laterally over the transversing L5 nerve root. Additional disc material was removed from the disc space proper after loosening additional disc more medially and laterally from underneath the nerve foramen into the disc space proper and then removing the fragments of disc with a pituitary rongeur. The ligament in the lateral recess at L4-5 was removed more rostrally. The posterior longitudinal ligament underneath the posterior inferior aspect of the L4 lamina and the posterior superior aspect of the L5 lamina were scraped away with a Montserrat curette and removed with pituitary rongeur. Excellent redo decompression of the thecal sac the lateral recess the exiting L4 nerve root in its foramen and the transversing L5 nerve root is transversed medial to its pedicle was all assured both by visual inspection as well as by palpation in these regions around the nerve structures using a Madyson instrument. Attention was turned to the lateral exposure. This incision was opened with a 10 blade scalpel and all dermal and superficial bleeding points being controlled with bipolar cautery. Dissection was continued through the copious subcutaneous tissue down to the muscle layer laterally. Dissection proceeded between the erector spinae down to the L4 transverse process which was palpated digitally digitally. The FanMob tubular retractor guide was docked on the left L4 transverse process with the larger guide sheath being placed over this and then the tubular retractor was placed over this and secured to the surgical bed. The operative microscope was also used for the far lateral microdiscectomy. The left L4 transverse process was dissected out with the Bovie cautery. Further dissection yielded the lateral aspect of the left L4-5 facet joint. The high-speed Midas Jose A the larger drill with a matchstick bit was used to drill down the caudal aspect of the L4 transverse process and the very lateral caudal aspect of the L4-5 facet joint. The intertransverse process fascial plane was identified and opened. The underlying distal L4 nerve was identified as it exited its nerve foramen laterally. The nerve did appear to be decompressed by the opening of the intertransverse process fashion which was completely removed from the lateral aspect of the nerve foramen to the end of the transverse process. The Madyson instrument was then used to carefully dissect underneath the nerve with some partially calcified disc being encountered underneath which was carefully dissected and removed with small Montserrat curettes from underneath the nerve. Visual inspection as well as by passing a Camden instrument Camden instrument above and below the exiting L4 nerve root as it exited out the lateral aspect of the L4 nerve foramen and by passing the Madyson instrument underneath the nerve throughout its course around the lateral aspect of the L4- 5 disc space. Both surgical sites were copiously irrigated with bacitracin irrigation. Meticulous hemostasis was performed with bipolar cautery turned down to a low setting as well as with FloSeal hemostatic agent. Final radiographic images were obtained with a ball-tip instrument extending to the lateral aspect of the lateral nerve decompression and a Camden instrument extending into the lateral aspect of the left L4 nerve foramen and a ball-tip instrument extending into the proximal aspect of the L4 nerve foramen. The surgical sites were again copiously irrigated with bacitracin irrigation. 2 mL of 6 g of Celestone per milliliter was split with half of this solution being placed in the lateral recess of L4-5 on the left and the other half of the solution was placed over the lateral aspect of the nerve where it exited from the lateral aspect of the L4 nerve foramen. Thus the proximal aspect as well as the distal aspect of the L4 nerve root both in the canal and lateral to the canal as well as the proximal aspect of the takeoff of the L5 nerve root in the canal were bathed in the steroid. FloSeal hemostatic agent was placed in the depths of both surgical sites over the nerve structures. The closure portion of the procedure was begun. The midline lumbar fascia was closed with #1 Vicryl suture in an interrupted fashion. The midline surgical site was irrigated again with bacitracin irrigation. The deep subcutaneous was closed tissue was closed with 2-0 Vicryl suture in a interrupted fashion. 10 mL of lipolysed Marcaine was then injected all around the incision in the subcutaneous tissue. The dermis and superficial subcutaneous tissue was then closed with 3-0 Vicryl suture in an inverted interrupted fashion. The final layer of closure was performed with 4-0 Monocryl and a running subcuticular fashion. The lateral incision was closed in the same layers of closure with the same suture. Lyophilized Marcaine was injected all around this surgical site in the subcutaneous tissue was well during the closure. All surgical drapes were removed from Ms. Chapman. She was carefully rolled over onto the PACU stretcher. She was awoken and the anesthesia staff. She was taken the recovery room in stable condition. All surgical counts were reported as correct by the scrub and circulating personnel.
[2018-01-01] MEDS: Acetaminophen 1000mg Inj 1,000 MG/100 ML VIAL IV PRN (20:36)
[2018-01-01] MEDS ORDERED: BISACODYL 5 MG TABLET PO PRN (20:39)
[2018-01-01] MEDS ORDERED: HYDROmorphone 2 MG/1 ML IVP PRN (20:39)
[2018-01-01] MEDS ORDERED: MAGNESIUM CITRATE 296 ML SOLUTION PO PRN (20:39)
[2018-01-01] MEDS ORDERED: PROMETHAZINE 25 MG/1 ML VIAL IM PRN (20:39)
[2018-01-01] MEDS ORDERED: Ondansetron ODT Tab 4 MG TAB PO PRN (20:39)
[2018-01-01] MEDS ORDERED: DOCUSATE 100 MG CAPSULE PO PRN (20:39)
[2018-01-01] MEDS ORDERED: Vancomycin-PHA to Dose IV SCH (20:39)
[2018-01-01] MEDS ORDERED: Fleet Enema 133ml RECTAL PRN (20:39)
[2018-01-01] MEDS ORDERED: MAGNESIUM 400 MG/5 ML - 30 ML (MILK OF MAGNESIA) PO PRN (20:39)
[2018-01-01] MEDS ORDERED: Metoclopramide Inj 10 MG/2 ML VIAL IVP PRN (20:39)
--- NOTE | 2018-01-01 20:55 | NEURO.PROG ---
Subjective Post Op Day: 0 Pain Management: IV Rose Catheter: Yes Diet: Regular Ambulating: No Additional Details: Awake and alert in PACU. States back and left leg feel a lot better then after awakening from her prior surgery. Moving all extremities bilaterally. Left dorsiflexion and plantarflexion still weak. To surgical floor when ready. Objective : Data - Vital Signs Vital Signs and I&O: Vital Signs - Last Taken Temperature 98.4 F 01/01/18 14:21 Pulse Rate 79 01/01/18 14:21 Respiratory Rate 16 01/01/18 14:21 Blood Pressure 114/55 01/01/18 14:21 Pulse Ox 99 01/01/18 14:21 Intake and Output (24hr x 4 totals) 12/30/17 12/31/17 01/01/18 01/02/18 05:59 05:59 05:59 05:59 Intake Total 2900 / 2900 Output Total 1200 / 1200 Balance 1700 / 1700
[2018-01-01] MEDS: CYCLOBENZAPRINE 10 MG TABLET PO PRN (21:43)
[2018-01-01] MEDS: HYDROmorphone Tab 4 MG TAB PO PRN (21:43)
[2018-01-01] MEDS: DEXAMETHASONE PF 10 MG/1 ML VIAL IVP SCH (21:48)
[2018-01-02] MEDS: DIAZEPAM 10 MG TABLET PO PRN ×2 (00:17→13:31)
[2018-01-02] MEDS: ceFAZolin Inj 1 GM in Sodium Chloride 0.9% 100 ML IV SCH ×2 (02:04→10:26)
[2018-01-02] MEDS: DEXAMETHASONE PF 10 MG/1 ML VIAL IVP SCH ×3 (02:05→13:28)
[2018-01-02] MEDS: HYDROmorphone Tab 4 MG TAB PO PRN ×3 (03:47→13:28)
[2018-01-02] MEDS: Acetaminophen 1000mg Inj 1,000 MG/100 ML VIAL IV PRN (03:48)
[2018-01-02 04:13] LABS: BASOPHILS # (AUTO) 0 10*3/UL; BASOPHILS % (AUTO) 0 % (0-1); EOSINOPHILS # (AUTO) 0.01 10*3/UL; EOSINOPHILS % (AUTO) 0.1 % (0-8); Hematocrit [HCT] 35.8 % (37.0-47.0); Hemoglobin [HGB] 11.8 g/dL (12.0-16.0); LYMPHOCYTES # (AUTO) 0.82 10*3/uL; MEAN CORPUSCULAR HEMOGLOBIN 27.1 PG (27-31); MEAN CORPUSCULAR VOLUME 82.3 FL (81-99); MEAN PLATELET VOLUME 9.4 FL (7.4-12.2); MONOCYTES # (AUTO) 0.11 10*3/UL (0.3-0.8); MONOCYTES % (AUTO) 0.8 % (5-15); NEUTROPHILS % (AUTO) 92.6 % (50-80); RED BLOOD COUNT 4.35 10^6/uL (4.20-5.40)
[2018-01-02 04:40] LABS: BLOOD UREA NITROGEN 12 mg/dL (7-22); BUN/CREATININE RATIO 17.14 (6-20)
[2018-01-02 05:21] LABS: PLATELET MORPHOLOGY COMMENT NORMAL MORPHOLOGY (NORM); RBC MORPHOLOGY COMMENT NORMAL MORPHOLOGY (NORM); WBC MORPHOLOGY COMMENT NORMAL MORPHOLOGY (NORM)
--- NOTE | 2018-01-02 05:59 | NEURO.PROG ---
Subjective Post Op Day: 1 Pain Management: PO Rose Catheter: No Flatus: Yes Diet: Regular Ambulating: Yes Additional Details: Awake and alert. Left leg continues to feel much better then since last surgery and before last surgery. Moving all extremities well. Left dorsiflexion/plantarflexion much stronger then since I have been following patient and stronger then last night, 4+/5. Feels she will likely be ready for discharge to home. PLAN: Discharge to home. Objective : Data - Labs CBC and BMP: 01/02/18 04:05 01/02/18 04:05 - Vital Signs Vital Signs and I&O: Vital Signs - Last Taken Temperature 97.8 F 01/02/18 04:17 Pulse Rate 92 01/02/18 04:17 Respiratory Rate 16 01/02/18 04:17 Blood Pressure 107/70 01/02/18 04:17 Pulse Ox 95 01/02/18 04:17 Intake and Output (24hr x 4 totals) 12/30/17 12/31/17 01/01/18 01/02/18 05:59 05:59 05:59 05:59 Intake Total 4770 / 4770 Output Total 1999 Balance 2770 / 2770
[2018-01-02] MEDS ORDERED: Nasal Sanitizer POPSWAB ampule 3 AMP (Nozin) PREOP DOSE ENOS SCH (06:00)
[2018-01-02] MEDS ORDERED: Lactated Ringers 1,000 ML PRIMARY IV ONE (06:00)
[2018-01-02] MEDS ORDERED: LIDOCAINE W/ SODIUM BICARB 0.5 ML SYR SUBD ONE (06:00)
[2018-01-02] MEDS ORDERED: PANTOPRAZOLE 40 MG TABLET PO SCH (07:00)
[2018-01-02] MEDS ORDERED: Influenza 18-19 Vaccine (6mo+) 60 MCG/0.5 ML SYRINGE IM ONE (07:01)
[2018-01-02] MEDS: CYCLOBENZAPRINE 10 MG TABLET PO PRN (07:02)
[2018-01-02] MEDS ORDERED: buPROPion XL Tab 150 MG TAB PO SCH (09:00)
[2018-01-02] MEDS ORDERED: Topiramate Tab 50 MG TAB PO SCH (09:00)
[2018-01-02] MEDS ORDERED: BUPivacaine Liposome/PF (Exparel) Inj 20ml vial INFIL ONE (09:54)
[2018-01-02 12:57] VITALS: BP 112/67; RESP 18; TEMP 98.2; O2SAT 97
--- NOTE | 2018-01-02 14:45 | PTI REPORT ---
Thank you for the referral of Cheyenne Chapman. She was seen on 01/02/18 for an inpatient evaluation status post laminectomy. SUBJECTIVE: The patient is a 27-year-old female who underwent a laminectomy yesterday. The patient reports that she has a pain level of 6/10 on the verbal analog scale (0= no pain, 10=worst pain) at this time. She states that approximately two weeks ago she did [place] [facility] [place] has been sore since that surgery. The patient states that her home is properly equipped secondary to having her discectomy a couple of weeks prior. She has also brought her front wheeled walker, which she has primarily been using secondary to left lower extremity weakness. She also does have a cane. The patient lives with her and states that she has about four stairs in her home. PAST MEDICAL HISTORY: Past medical history can be found in the patient's medical record. OBJECTIVE FINDINGS: General observations: The patient was alert and oriented to setting upon PT arrival. The patient was able to verbalize precautions for status post laminectomy including bending/lifting/twisting precautions. Bed mobility: The patient was able to demonstrate how to properly log roll to go from supine to seated position. Upon sitting edge of bed, the patient denied any dizziness and just complained of pain around her surgical site of 6/ 10. The patient was able to transfer from seated to supine using log roll technique. Transfers: The patient was able to transfer from a seated to standing position with stand by assist x1 for safety. The patient utilized the front wheeled walker due to having two back surgeries over the last two weeks and weakness of her left lower extremity. The walker was the safest option. The patient was able to transfer from a standing to seated position. Ambulation: The patient was able to ambulate with front wheeled walker x150 feet on level surfaces safely and independently. The patient was able to ascend and descend 5 stairs with use of front wheeled walker and a railing on the left safely and independently. She did require minimal verbal cueing for proper walker placement. ASSESSMENT: The patient has good rehab potential. Problem List: Patient is status post laminectomy Physical Therapy Goals: To be met by discharge from inpatient: Patient will be able to transfer from bed to stand safely and independently. Patient will be able to ambulate at least 150 feet with front wheeled walker safely and independently. Patient will be able to ascend and descend 5 stairs safely and independently in order to return back home. TREATMENT PLAN: Patient has met all goals for physical therapy. We will discharge physical therapy. Nursing staff was notified that patient did meet therapy goals and is safe to return back home. INITIAL TREATMENT: Treatment today consisted of the initial evaluation followed by one unit of functional activity. RODDY
--- NOTE | 2018-01-02 15:50 | OT AM DAY ---
Diagnosis : Laminectomy AM - Occupational Therapy S: The patient reports that she had back surgery just a couple of weeks ago ; this time they did a laminectomy. Prior to admission she was using adaptive equipment that was issued to her before, but she did need another comptroller so that she could be independent on both levels of her home. O: The patient was issued a comptroller. She will be using this to dress self. She will keep this one in her bathroom to increase her independence. A: The patient will benefit from adaptive equipment to follow back precautions. P: No further treatment is indicated at this time. MTDD
== END 2018-01-02 13:59 | disposition home or self-care (01) | DRG 518 ==
LOC: MED/SURG 12:55
PROVIDERS: ADMIT Neurological Surgery; ATTEND Neurological Surgery